=== PATIENT | male | born 1985 | race Caucasian/White ===

== ENCOUNTER 2019-04-28 10:57 | Emergency (ER) | payer BC, OTHER ==
[~2019-04-28] VITALS: Ht 180.3 cm; Wt 60.3 kg
[2019-04-28 10:58] VITALS: BP 133/74
== END 2019-04-28 11:50 | disposition home or self-care (01) ==
LOC: ER 10:57
DX: S61.211A Laceration without foreign body of left index finger without damage to nail, initial encounter (principal); F17.210 Nicotine dependence, cigarettes, uncomplicated; W26.8XXA Contact with other sharp object(s), not elsewhere classified, initial encounter; Y93.89 Activity, other specified; Y92.89 Other specified places as the place of occurrence of the external cause; Y99.8 Other external cause status

== ENCOUNTER 2019-10-27 22:03 | Emergency (ER) | payer OTHER ==
[~2019-10-27] VITALS: Ht 180.3 cm; Wt 61.2 kg
[2019-10-27 22:05] VITALS: BP 128/74
== END 2019-10-28 00:40 | disposition home or self-care (01) ==
LOC: ER 22:03
DX: R07.89 Other chest pain (principal); F17.210 Nicotine dependence, cigarettes, uncomplicated; Z91.013 Allergy to seafood